=== PATIENT | male | born 1980 | race Hispanic/Latino ===

== ENCOUNTER 2018-06-05 00:03 | Emergency (ER) | payer SELFPAY ==
[2018-06-05] MEDS ORDERED: Lidocaine 1% w/Epinephrine 1:100K 30 ML VIAL ONE (00:09)
[2018-06-05] MEDS ORDERED: CEFAZOLIN 1 GM VIAL ONE (00:23)
[2018-06-05] MEDS ORDERED: Adacel (T-DAP) 0.5 ML VIAL ONE (01:21)
[2018-06-05] MEDS ORDERED: Ketorolac Tromethamine 60 MG/2 ML VIAL ONE (01:23)
[2018-06-05] MEDS ORDERED: Bacitracin Zinc 1 Packet ONE (01:25)
[2018-06-05] MEDS ORDERED: Ketorolac Tromethamine 30 MG/ML VIAL ONE (01:25)
--- NOTE | 2018-06-05 08:12 | RAD ---
LEFT LEG: DATE: 06/05/2018. FINDINGS: Multiple views show a deep soft tissue laceration anteriorly on the leg. No opaque foreign bodies ar e seen within it. The underlying bone is intact with no sign of fracture. IMPRESSION: Soft tissue laceration. POS: HOME
== END 2018-06-05 02:03 | disposition home or self-care (01) ==
LOC: BURERS 00:03
DX: S81.812A Laceration without foreign body, left lower leg, initial encounter (principal); W26.8XXA Contact with other sharp object(s), not elsewhere classified, initial encounter
CPT/HCPCS: 12034; 90471; 90715; 96374; 96375; J0690; J1885; J2001

== ENCOUNTER 2018-06-07 17:01 | Emergency (ER) | payer SELFPAY | END 2018-06-07 17:44 | disposition home or self-care (01) | LOC: BURERS 17:01 | DX: S81.812D Laceration without foreign body, left lower leg, subsequent encounter (principal) | CPT/HCPCS: 99282 ==

== ENCOUNTER 2018-06-10 17:17 | Emergency (ER) | payer SELFPAY ==
[2018-06-10] MEDS ORDERED: Bacitracin Zinc 1 Packet ONE (17:38)
== END 2018-06-10 18:01 | disposition home or self-care (01) ==
LOC: BURERS 17:17
DX: S81.812D Laceration without foreign body, left lower leg, subsequent encounter (principal); Z79.899 Other long term (current) drug therapy
CPT/HCPCS: 99282

== ENCOUNTER 2018-06-14 19:37 | Emergency (ER) | payer SELFPAY ==
[2018-06-14] MEDS ORDERED: Bacitracin Zinc 1 Packet ONE (20:02)
== END 2018-06-14 20:15 | disposition home or self-care (01) ==
LOC: BURERS 19:37
DX: S81.812D Laceration without foreign body, left lower leg, subsequent encounter (principal); Z79.899 Other long term (current) drug therapy

== ENCOUNTER 2020-07-19 00:38 | Emergency (ER) | payer OTHER, SELFPAY | END 2020-07-19 01:15 | LOC: BURERS 00:38 | DX: Z04.1 Encounter for examination and observation following transport accident (principal); F17.210 Nicotine dependence, cigarettes, uncomplicated; V69.9XXA Occupant (driver) (passenger) of heavy transport vehicle injured in unspecified traffic accident, initial encounter | CPT/HCPCS: 99282 ==